=== PATIENT | male | born 1960 | race Caucasian/White ===

== ENCOUNTER 2022-04-20 06:41 | Inpatient (IN) ==
[2022-04-20] MEDS: Ringers Solution, Lactated 1,000 ML IVC SCH (07:45)
[2022-04-20] MEDS ORDERED: Promethazine 6.25 MG in Water for inj. (sterile) 20 ML IVPB PRN (07:49)
[2022-04-20] MEDS ORDERED: *HR* OxyCODONE Immed Rel 5 MG TABLET PO PRN (07:49)
[2022-04-20] MEDS ORDERED: *HR* HYDROmorphone PF 0.5 MG/0.5 ML SYRINGE IVP PRN (07:49)
[2022-04-20] MEDS ORDERED: Ondansetron 4 MG/2 ML VIAL IVP PRN (07:49)
[2022-04-20] MEDS ORDERED: *HR* Midazolam HCl 2 MG/2 ML VIAL ONE (08:09)
[2022-04-20] MEDS ORDERED: *HR* FentaNYL (PF) 100 MCG/2 ML VIAL ONE (08:09)
[2022-04-20] MEDS ORDERED: *HR* Propofol 200 MG/20 ML VIAL IVP ONE (08:09)
[2022-04-20] MEDS ORDERED: *HR* Succinylcholine 200 MG/10 ML VIAL IVP ONE (08:10)
[2022-04-20] MEDS ORDERED: Lidocaine HCL 4 ML Topical Solution (Laryng-O-Jet Kit Sterile Pak) TP ONE (08:10)
[2022-04-20] MEDS ORDERED: Ondansetron 4 MG/2 ML VIAL ONE (08:10)
[2022-04-20] MEDS ORDERED: *HR* Rocuronium Bromide 50 MG/5 ML VIAL ONE (08:10)
[2022-04-20] MEDS ORDERED: Lidocaine -MPF 2% 5 ML VIAL ONE (08:10)
[2022-04-20] MEDS ORDERED: *HR* Labetalol 20 MG/4 ML SYRINGE IVP ONE (08:22)
[2022-04-20] MEDS ORDERED: *HR* Metoprolol 5 MG/5 ML VIAL IVP ONE (08:28)
[2022-04-20] MEDS ORDERED: *HR* EPINEPHrine 1 MG/10 ML SYRINGE INTRATRACH PRN (08:42)
[2022-04-20] MEDS ORDERED: Ipratropium/Albuterol Neb 3 ML IH PRN (12:44)
[2022-04-20] MEDS ORDERED: GuaiFENesin/Codeine Oral Soln 5 ML UDC PO PRN (12:44)
[2022-04-20] MEDS ORDERED: Acetaminophen 325 MG TABLET PO PRN (12:44)
[2022-04-20] MEDS ORDERED: Azithromycin 250 MG TABLET PO ONE (12:44)
[2022-04-20] MEDS ORDERED: Naloxone 0.4 MG/ML INJ IVP PRN (12:44)
[2022-04-20] MEDS ORDERED: Nitroglycerin 0.4 MG TAB.SUBL SL PRN (12:49)
[2022-04-20 13:31] LABS: Basophils % 0.2 %; Eosinophils % 0.2 %; Hemoglobin 13.7 g/dL (12.9-16.9); Immature Granulocytes % 0.2 % (0-4); Lymphocytes # 0.6 K/mcL (0.6-4.6); Lymphocytes % 12.9 %; Mean Corpuscular HGB Conc 33.4 g/dL (31.6-35.5); Mean Corpuscular Hemoglobin 30.7 pg (28.0-33.3); Mean Corpuscular Volume 91.9 fL (83.0-100.0); Mean Platelet Volume 8.5 fL (9.4-12.4); Monocytes # 0.1 K/mcL (0.0-1.3); Monocytes % 2.3 %; Neutrophils # 3.6 K/mcL (1.6-8.9); Platelet Count 180 K/mcL (140-400); Red Blood Count 4.46 M/mcL (4.19-5.50); Red Cell Distribution Width 12.9 % (11.5-14.5); Segmented Neutrophils % 84.2 %; White Blood Count 4.3 K/mcL (4.3-11.1)
[2022-04-20 14:20] LABS: BUN/Creatinine Ratio 11 (6-26); Blood Urea Nitrogen 9 mg/dL (8-23); Calcium 8.6 mg/dL (8.6-10.3); Carbon Dioxide 20 mEq/L (23-29); Chloride 108 mEq/L (98-107); Glucose 134 mg/dL (70-105); Magnesium 1.8 mg/dL (1.6-2.6); Osmolality,Calculated 285 (280-300); Phosphorous 2.7 mg/dL (2.7-4.5); Potassium 4.4 mEq/L (3.5-5.1); Sodium 137 mEq/L (136-145); eGFR For African Americans > 60 (> 60); eGFR For Non-African Americans > 60 (> 60)
[2022-04-20] MEDS: *HR* Heparin 5,000 UNIT/ML VIAL SQ SCH (15:00)
[2022-04-20] MEDS: methylPREDNISolone 125 MG/2 ML VIAL IVP SCH (17:30)
[2022-04-20] MEDS: Budesonide/Formoterol 160/4.5 1 PUFF INH IH SCH (19:48)
[2022-04-20] MEDS: Mirtazapine 15 MG TABLET PO SCH (20:55)
[2022-04-20] MEDS ORDERED: NON-FORMULARY MEDICATION 1 EACH EACH (Omeprazole [Prilosec] 40 MG Capsule.Dr) PO SCH (21:00)
[2022-04-21] MEDS: *HR* Heparin 5,000 UNIT/ML VIAL SQ SCH ×3 (00:06→17:08)
[2022-04-21 03:51] LABS: Hematocrit 39.3 % (37.5-50.1); Hemoglobin 13.6 g/dL (12.9-16.9); Immature Granulocytes % 0.2 % (0-4); Lymphocytes # 0.8 K/mcL (0.6-4.6); Lymphocytes % 13.2 %; Mean Corpuscular HGB Conc 34.6 g/dL (31.6-35.5); Mean Corpuscular Hemoglobin 31.2 pg (28.0-33.3); Mean Corpuscular Volume 90.1 fL (83.0-100.0); Mean Platelet Volume 8.9 fL (9.4-12.4); Monocytes # 0.1 K/mcL (0.0-1.3); Monocytes % 1.9 %; Platelet Count 202 K/mcL (140-400); Red Blood Count 4.36 M/mcL (4.19-5.50); Red Cell Distribution Width 12.5 % (11.5-14.5); Segmented Neutrophils % 84.7 %; White Blood Count 5.9 K/mcL (4.3-11.1)
[2022-04-21 04:11] LABS: BUN/Creatinine Ratio 14 (6-26); Blood Urea Nitrogen 11 mg/dL (8-23); Calcium 8.6 mg/dL (8.6-10.3); Carbon Dioxide 22 mEq/L (23-29); Chloride 107 mEq/L (98-107); Glucose 141 mg/dL (70-105); Magnesium 1.9 mg/dL (1.6-2.6); Osmolality,Calculated 286 (280-300); Phosphorous 2.1 mg/dL (2.7-4.5); Potassium 4.3 mEq/L (3.5-5.1); Sodium 137 mEq/L (136-145); eGFR For African Americans > 60 (> 60); eGFR For Non-African Americans > 60 (> 60)
[2022-04-21] MEDS: Ringers Solution, Lactated 1,000 ML IVC SCH (05:45)
[2022-04-21] MEDS: methylPREDNISolone 125 MG/2 ML VIAL IVP SCH ×2 (05:50→17:08)
[2022-04-21] MEDS: ARIPiprazole 5 MG TABLET PO SCH (07:39)
[2022-04-21] MEDS: Azithromycin 250 MG TABLET PO SCH (07:39)
[2022-04-21] MEDS: Budesonide/Formoterol 160/4.5 1 PUFF INH IH SCH ×2 (07:39→20:12)
[2022-04-21] MEDS: Loratadine 10 MG TABLET PO SCH (07:39)
[2022-04-21] MEDS: modafiniL 100 MG TABLET PO SCH (07:40)
[2022-04-21 11:17] LABS: Thyroid Stimulating Hormone 1.553 mcIU/mL (0.340-5.600)
[2022-04-21] MEDS: Mirtazapine 15 MG TABLET PO SCH (20:06)
[2022-04-22] MEDS: *HR* Heparin 5,000 UNIT/ML VIAL SQ SCH ×3 (00:13→16:20)
[2022-04-22 03:19] LABS: Basophils % 0.1 %; Hematocrit 38.9 % (37.5-50.1); Hemoglobin 13.1 g/dL (12.9-16.9); Immature Granulocytes % 0.7 % (0-4); Lymphocytes # 1.1 K/mcL (0.6-4.6); Lymphocytes % 11.8 %; Mean Corpuscular HGB Conc 33.7 g/dL (31.6-35.5); Mean Corpuscular Hemoglobin 31.3 pg (28.0-33.3); Mean Corpuscular Volume 93.1 fL (83.0-100.0); Monocytes # 0.4 K/mcL (0.0-1.3); Monocytes % 4.8 %; Neutrophils # 7.4 K/mcL (1.6-8.9); Platelet Count 198 K/mcL (140-400); Red Blood Count 4.18 M/mcL (4.19-5.50); Segmented Neutrophils % 82.6 %
[2022-04-22 03:40] LABS: BUN/Creatinine Ratio 23 (6-26); Blood Urea Nitrogen 18 mg/dL (8-23); Calcium 8.5 mg/dL (8.6-10.3); Carbon Dioxide 24 mEq/L (23-29); Chloride 107 mEq/L (98-107); Glucose 137 mg/dL (70-105); Magnesium 2.1 mg/dL (1.6-2.6); Osmolality,Calculated 290 (280-300); Phosphorous 2.5 mg/dL (2.7-4.5); Potassium 4.4 mEq/L (3.5-5.1); Sodium 138 mEq/L (136-145); eGFR For African Americans > 60 (> 60); eGFR For Non-African Americans > 60 (> 60)
[2022-04-22 03:52] LABS: Thyroid Stimulating Hormone 0.486 mcIU/mL (0.340-5.600)
[2022-04-22] MEDS: methylPREDNISolone 125 MG/2 ML VIAL IVP SCH ×2 (05:27→17:08)
[2022-04-22] MEDS: Budesonide/Formoterol 160/4.5 1 PUFF INH IH SCH ×2 (07:54→20:20)
[2022-04-22] MEDS: Azithromycin 250 MG TABLET PO SCH (07:59)
[2022-04-22] MEDS: ARIPiprazole 5 MG TABLET PO SCH (07:59)
[2022-04-22] MEDS: Loratadine 10 MG TABLET PO SCH (07:59)
[2022-04-22] MEDS: modafiniL 100 MG TABLET PO SCH (07:59)
[2022-04-22] MEDS: Mirtazapine 15 MG TABLET PO SCH (19:46)
[2022-04-23] MEDS: *HR* Heparin 5,000 UNIT/ML VIAL SQ SCH ×4 (00:40→23:41)
[2022-04-23 01:59] LABS: Hematocrit 41.4 % (37.5-50.1); Mean Corpuscular HGB Conc 33.8 g/dL (31.6-35.5); Mean Corpuscular Hemoglobin 31.5 pg (28.0-33.3); Mean Platelet Volume 8.8 fL (9.4-12.4); Platelet Count 198 K/mcL (140-400); Red Blood Count 4.45 M/mcL (4.19-5.50); Red Cell Distribution Width 12.8 % (11.5-14.5); White Blood Count 7.8 K/mcL (4.3-11.1)
[2022-04-23] MEDS: methylPREDNISolone 125 MG/2 ML VIAL IVP SCH ×2 (05:06→17:52)
[2022-04-23] MEDS: Budesonide/Formoterol 160/4.5 1 PUFF INH IH SCH ×2 (07:47→20:00)
[2022-04-23] MEDS: Azithromycin 250 MG TABLET PO SCH (10:54)
[2022-04-23] MEDS: modafiniL 100 MG TABLET PO SCH (10:54)
[2022-04-23] MEDS: Venlafaxine XR (24 HR) 150 MG CAP.ER.24H PO SCH (10:54)
[2022-04-23] MEDS: Loratadine 10 MG TABLET PO SCH (10:54)
[2022-04-23] MEDS: ARIPiprazole 5 MG TABLET PO SCH (10:54)
[2022-04-23] MEDS: Mirtazapine 15 MG TABLET PO SCH (20:24)
[2022-04-24] MEDS: methylPREDNISolone 125 MG/2 ML VIAL IVP SCH (05:59)
[2022-04-24 06:38] VITALS: BP 122/79; TEMP 97.5; O2SAT 93
[2022-04-24 07:20] VITALS: PULSE 71
[2022-04-24] MEDS: Loratadine 10 MG TABLET PO SCH (07:41)
[2022-04-24] MEDS: Azithromycin 250 MG TABLET PO SCH (07:41)
[2022-04-24] MEDS: ARIPiprazole 5 MG TABLET PO SCH (07:41)
[2022-04-24] MEDS: Venlafaxine XR (24 HR) 150 MG CAP.ER.24H PO SCH (07:41)
[2022-04-24] MEDS: *HR* Heparin 5,000 UNIT/ML VIAL SQ SCH (07:41)
[2022-04-24] MEDS: modafiniL 100 MG TABLET PO SCH (07:41)
[2022-04-24] MEDS: Budesonide/Formoterol 160/4.5 1 PUFF INH IH SCH (07:46)
== END 2022-04-24 11:28 | disposition home or self-care (01) | DRG 133 ==
LOC: SAMDAY 06:41 → EDSTATUS 07:45 → ICNU 12:20 → 2NNU 04-21 11:38
PROVIDERS: ADMIT Internal Medicine Pulmonary Disease; ATTEND Internal Medicine Pulmonary Disease
PROC: ENDOLBX (2022-04-20 07:45)